=== PATIENT | male | born 1945 | race Caucasian/White ===

== ENCOUNTER 2018-07-20 06:10 | Inpatient (IN) | payer OTHER ==
[2018-07-19 13:35] VITALS: BMI 29.9
[~2018-07-20 06:10] MED LIST: HEPARIN NA (PORCINE) 5,000 UNITS/ML 1ML VIAL SQ ONE
[2018-07-20] MEDS ORDERED: BUPIVACAINE HCL/PF 0.5% (5MG/ML) 10 ML VIAL ONE (07:26)
[2018-07-20] MEDS ORDERED: MIDAZOLAM HCL 2 MG/2 ML SINGLE DOSE VIAL ONE (07:57)
[2018-07-20] MEDS ORDERED: PROPOFOL 20 ML ONE (07:57)
[2018-07-20] MEDS ORDERED: fentaNYL CITRATE 250 MCG/5 ML VIAL ONE (07:58)
--- NOTE | 2018-07-20 08:11 | HP ---
History & Physical Update - History History: No Change - Physical Physical: No Change - Assessment Assessment: No Change - Plan Plan: No Change (Used the lead pl sql developer phone service #[phone])
[2018-07-20] MEDS ORDERED: ROCURONIUM BROMIDE 50 MG/5 ML VIAL ONE ×4 (08:15→11:37)
[2018-07-20] MEDS ORDERED: ceFAZolin SODIUM 1 GM VIAL IVPB ONE (08:20)
[2018-07-20] MEDS ORDERED: BUPIVACAINE HCL/PF 0.5% (5MG/ML) 10 ML VIAL NR ONE ×2 (08:50→12:28)
[2018-07-20] MEDS ORDERED: ePHEDrine SULFATE 50 MG/1 ML AMPULE ONE (08:52)
[2018-07-20] MEDS ORDERED: NEOSTIGMINE METHYLSULFATE 0.5 MG/ML - 10 ML MDV ONE (12:17)
[2018-07-20] MEDS ORDERED: GLYCOPYRROLATE 0.2 MG/1 ML VIAL ONE (12:18)
[2018-07-20] MEDS ORDERED: ceFAZolin SODIUM 1 GM VIAL ONE (12:19)
[2018-07-20] MEDS ORDERED: DEXAMETHASONE SOD PHOSPHATE 4 MG/1 ML VIAL ONE (12:19)
[2018-07-20] MEDS ORDERED: LIDOCAINE HCL/PF 2% SDV 5ML VIAL ONE (12:19)
[2018-07-20] MEDS ORDERED: ACETAMINOPHEN INJECTION 100 ML IVPB ONE (12:59)
[2018-07-20] MEDS ORDERED: ONDANSETRON 4 MG/2 ML VIAL IVPB PRN (13:04)
[2018-07-20] MEDS ORDERED: diphenhydrAMINE HCL 50 MG CAPSULE PO PRN (13:04)
[2018-07-20] MEDS ORDERED: HEPARIN NA (PORCINE) 5,000 UNITS/ML 1ML VIAL SQ ONE (13:04)
[2018-07-20] MEDS ORDERED: OXYBUTYNIN CHLORIDE 5 MG TABLET PO PRN (13:04)
[2018-07-20] MEDS ORDERED: ACETAMINOPHEN 1000 MG/100 ML VIAL (NON FORMULARY) IVPB ONE (13:05)
--- NOTE | 2018-07-20 13:09 | OP ---
Operative Note - Note: Operative Date: 07/20/18 Pre-Operative Diagnosis: prostate cancer Operation: robotic assisted radical prostatectomy and bilateral pelvic lymph node dissection Post-Operative Diagnosis: Same as Pre-op Surgeon: Winnie Clayton Interpretative Dancer: Jazmine Mercado Anesthesiologist/MEDICAL RECORDS CUSTODIAN: Beckie Bonilla MD Anesthesia: General Estimated Blood Loss (mls): 100 Operative Report Dictated: Yes
--- NOTE | 2018-07-20 13:10 | SURG ---
Surgery Gum Mixer Note Gum Mixer: Jazmine Mercado PA-C Date of Service: 07/20/18 Diagnosis: Prostate cancer Procedure: Robotic assisted radical prostatectomy and bilateral pelvic lymph node dissection I was present for the entirety of the operative procedure. For further detail, please refer to operative report. Visit type - Case Type Case Type: Scheduled - Emergency Emergency Visit: No - New patient This patient is new to me today: Yes Date on this admission: 07/20/18 - Critical Care Critical Care patient: No
[2018-07-20] MEDS ORDERED: oxyCODONE HCL 5 MG TABLET PO PRN (13:12)
[2018-07-20] MEDS: SODIUM CHLORIDE 1,000 ML IV SCH ×2 (13:15→22:21)
[2018-07-20] MEDS ORDERED: LACTATED RINGERS SOLUTION 1,000 ML IV SCH (13:15)
[2018-07-20] MEDS ORDERED: BRIMONIDINE TARTRATE 0.2% OPHTHALMIC 5 ML BOTTLE OU SCH (14:00)
--- NOTE | 2018-07-20 14:19 | PN ---
Progress Note (short form) - Note Progress Note: Used the guinean intreperter phone #[phone] to confirm eye drop medications. He has no complaints of blurry vision at this time. His eye drops are to resume as scheduled.
[2018-07-20] MEDS ORDERED: KETOROLAC TROMETHAMINE 30 MG/1 ML VIAL ONE (14:39)
[2018-07-20] MEDS ORDERED: KETOROLAC TROMETHAMINE 15 MG/ML VIAL IVPB ONE (15:00)
[2018-07-20] MEDS ORDERED: CEFAZOLIN 1 GM/D5W 1 GM/50 ML BAG IVPB SCH (16:00)
[2018-07-20] MEDS: INSULIN SLIDING SCALE (NOVOLOG) 1 VIAL SQ SCH ×2 (17:17→21:13)
[2018-07-20] MEDS: ACETAMINOPHEN 500 MG TABLET (FP) PO SCH (19:21)
[2018-07-20] MEDS ORDERED: PT OWN MED DRAWER 7, Y5N ONE (20:53)
[2018-07-20] MEDS: DOCUSATE SODIUM 100 MG CAPSULE (FP) PO SCH (21:09)
[2018-07-20] MEDS: KETOROLAC TROMETHAMINE 10 MG TABLET PO SCH (21:10)
[2018-07-20] MEDS: DORZOLAMIDE 2% HCL OPHTHALMIC SOLUTION 10 ML BOTTLE OU SCH (21:55)
[2018-07-20] MEDS: TIMOLOL 0.5% OPHTHALMIC SOL 5 ML BOTTLE OU SCH (21:55)
[2018-07-20] MEDS ORDERED: ATORVASTATIN CA 10 MG TABLET (FP) PO SCH (22:00)
[2018-07-20] MEDS ORDERED: LATANOPROST 0.005% OPHTH SOLN 2.5ML BOTTLE OU SCH (22:00)
[2018-07-20] MEDS ORDERED: PATIENT'S OWN MEDICATION (NON-FORMULARY) (Dorzolamide/Timolol/Pf [Timolol 0.5%-Dorzolamide OU SCH ×2 (22:00)
[2018-07-21] MEDS ORDERED: CEFAZOLIN 1 GM/D5W 1 GM/50 ML BAG IVPB SCH
[2018-07-21] MEDS: KETOROLAC TROMETHAMINE 10 MG TABLET PO SCH ×3 (00:30→12:16)
[2018-07-21] MEDS ORDERED: CEFAZOLIN 1 GM in DEXTROSE 5%-WATER - 50 ML IVPB ONE (00:30)
[2018-07-21] MEDS: ACETAMINOPHEN 500 MG TABLET (FP) PO SCH ×3 (01:02→12:15)
[2018-07-21] MEDS ORDERED: HEPARIN NA (PORCINE) 5,000 UNITS/ML 1ML VIAL SQ ONE (06:00)
[2018-07-21] MEDS: INSULIN SLIDING SCALE (NOVOLOG) 1 VIAL SQ SCH ×2 (06:38→10:56)
[2018-07-21 06:47] LABS: HEMATOCRIT 41.1 % (35.4-49); HEMOGLOBIN 13.8 GM/dL (11.7-16.9); MCH 29.7 pg (25.7-33.7); MCHC 33.5 g/dl (32.0-35.9); MEAN CELL VOLUME 88.7 fl (80-96); MEAN PLT VOLUME 9.7 fl (7.5-11.1); PLATELET COUNT 169 K/MM3 (134-434); RBC 4.63 M/mm3 (4.00-5.60); RDW 14.5 % (11.9-15.9); WHITE BLOOD COUNT 11.6 K/mm3 (4.0-10.0)
[2018-07-21] MEDS ORDERED: metFORMIN HCL 500 MG TABLET (FP) PO SCH (07:00)
[2018-07-21 07:13] LABS: CALCIUM 8.4 mg/dL (8.5-10.1); CREATININE 1.1 mg/dL (0.55-1.3); POTASSIUM 3.5 mmol/L (3.5-5.1)
--- NOTE | 2018-07-21 08:36 | DS ---
Physical Exam: SUBJECTIVE: Patient seen and examined this am. No complaints of CP/SOB. Minimal abd pain complaints. No nausea or emesis with clears, passed a small amount of flatus. OBJECTIVE: Vital Signs Period Temp Pulse Resp BP Sys/Sanon Pulse Ox Last 24 Hr 98 F-99.2 F 68-86 15-20 122-151/66-92 96-100 JP_ 35 ml blood tinged Duran 2500 blood tinged/light pink to clear no clots. PHYSICAL EXAM GENERAL: The patient is awake, alert, and fully oriented, in no acute distress. LUNGS: Breath sounds equal, clear to auscultation bilaterally. HEART: Regular rate and rhythm. ABDOMEN: Soft, incisional tenderness, nondistended. Incision c/d/i. YOAN removed without difficulty/tip intact. EXTREMITIES: no edema, no calf tenderness b/l. LABS Laboratory Results - last 24 hr 07/20/07/20/07/20/18 07:37 17:02 20:49 WBC RBC Hgb Hct MCV MCH MCHC RDW Plt Count MPV Sodium Potassium Chloride Carbon Dioxide Anion Gap BUN Creatinine Est GFR (CKD-EPI)AfAm Est GFR (CKD-EPI)NonAf POC Glucometer 151 145 Random Glucose Calcium Blood Type O POSITIVE 07/21/18 07/21/18 05:00 05:00 WBC 11.6 H RBC 4.63 Hgb 13.8 Hct 41.1 MCV 88.7 MCH 29.7 MCHC 33.5 RDW 14.5 Plt Count 169 MPV 9.7 Sodium 143 Potassium 3.5 Chloride 109 H Carbon Dioxide 27 Anion Gap 7 L BUN 11 Creatinine 1.1 Est GFR (CKD-EPI)AfAm 78.41 Est GFR (CKD-EPI)NonAf 67.66 POC Glucometer Random Glucose 101 Calcium 8.4 L Blood Type HOSPITAL COURSE: The patient was admitted to the Med-Surg Unit after an elective repair of their prostate cancer. Now, s/p robotic assisted prostatectomy with bilateral pelvic lymph node dissection. Non-narcotic pain management control was achieved with an oral and IV approach. POD #1, the surgical drain was removed fully intact and without incident. Monika-operative IV ABX were administered. DVT prophylaxis was achieved with SCDs, early ambulation and heparin SQ pre/post op. His duran catheter was draining light pink urine without clots. He tolerated clears liquids and was passing flatus upon discharge. The discharge instructions and an oral pain management plan were reviewed with the patient. Above plan discussed with Dr. Clayton. Date of Admission:07/20/18 Date of Discharge: 07/21/18 Minutes to complete discharge: 20 Discharge Summary Reason For Visit: MALIGNANT NEOPLASM OF PROSTATE Condition: Good - Instructions Diet, Activity, Other Instructions: Prostatectomy Post Operative Instructions Physical activity Resume your normal everyday activity as tolerated no heavy lifting (do not lift greater than 10 pounds) for six weeks. You may walk unlimited amounts and climb stairs. Wound care You may shower 48 hours after surgery. No baths or submerging your incision in water. Diet Continue a clear liquid diet until you are passing flatus, then advance your diet to a regular diet. You were prescribed stool softeners, please take them. This medication will help to avoid straining with bowel movements. Pain management You may take Tylenol (acetaminophen) and or Toradol (ketorolac tromethamine) for pain. Follow-up * Call Dr. Anderson for any of the following: * Severe pain not relieved by medication * Fever of 101 or higher * Excessive bleeding or drainage on dressing * Duran not draining urine for more than 1 hour or it the urine becomes bloody * Call the office at to confirm your follow-up appointment date and time Disposition: HOME - Home Medications Comprehensive Discharge Medication List: Ambulatory Orders Enalapril Maleate 5 mg PO DAILY 07/19/18 Acetaminophen [Tylenol -] 1,000 mg PO Q8H PRN #30 tablet 07/20/18 Aspirin [ASA -] 81 mg PO DAILY 07/20/18 Brimonidine Tartrate [Alphagan 0.2% -] 1 drop OU TID 07/20/18 Calcium Carbonate/Vitamin D3 [Calcium 500 + Vit D Caplet] 1 each PO DAILY Docusate Sodium [Colace -] 100 mg PO BID #60 capsule 07/20/18 Dorzolamide/Timolol/Pf [Timolol 0.5%-Dorzolamide 2%] 1 ml OU BID 07/20/18 Ergocalciferol [Vitamin D2] 50,000 unit PO Q7D@1000 07/20/18 Ketorolac Tromethamine [Toradol] 10 mg PO Q6H PRN #20 tablet 07/20/18 Latanoprost/Pf [Latanoprost 0.005% Eye Drop] 1 drop OU HS 07/20/18 Multivitamin [Multiple Vitamins] 1 each PO DAILY 07/20/18 Oxybutynin Chloride [Ditropan -] 5 mg PO Q8H PRN #10 tablet 07/20/18 Simvastatin 20 mg PO DAILY 07/20/18 metFORMIN HCL [Metformin HCl] 750 mg PO DAILY 07/20/18 This patient is new to me today: No Emergency Visit: No Critical Care patient: No - Discharge Referral Referred to [facility] No
[2018-07-21] MEDS ORDERED: PT OWN MED DRAWER 7, Y5N ONE (09:31)
[2018-07-21] MEDS: DOCUSATE SODIUM 100 MG CAPSULE (FP) PO SCH (09:36)
[2018-07-21] MEDS ORDERED: ENALAPRIL MALEATE 5 MG TABLET (FP) PO SCH (10:00)
[2018-07-21] MEDS: DORZOLAMIDE 2% HCL OPHTHALMIC SOLUTION 10 ML BOTTLE OU SCH (10:47)
[2018-07-21] MEDS: TIMOLOL 0.5% OPHTHALMIC SOL 5 ML BOTTLE OU SCH (10:47)
[2018-07-21 12:10] VITALS: BP 147/88; PULSE 81; TEMP 98.5
--- NOTE | 2018-07-23 06:57 | OP ---
DATE OF OPERATION: DATE OF DICTATION: 07/23/2018 PREOPERATIVE DIAGNOSIS: Prostate cancer. PROCEDURE PERFORMED: Robotic-assisted radical prostatectomy, bilateral pelvic lymph node dissection. SURGEON: Winnie Clayton MD PRIMARY BESSEMER REGULATOR: KEITH Espino INDICATIONS: This is a 72-year-old male patient who presents for robotic radical prostatectomy for prostate cancer. FINDINGS: Left neurovascular bundle spared, right sacrificed. Anastomosis done with 3-0 V-Loc in a running fashion. PROCEDURE DETAILS: The patient was prepped and draped in the usual fashion and placed in modified lithotomy position. All pressure points were padded, and the patient was secured to the table. A 16-Kazakh Van catheter was inserted. A supraumbilical incision was made. Veress needle was introduced, and the abdomen was insufflated to 15 mmHg. At 12-mm, a non-bladed trocar was introduced. The abdomen was inspected, and there was no evidence of injury on entry. Two robotic trocars were placed in the right lower quadrant, one in the left lower quadrant, and an retail loan originator assistant 12-mm AirSeal was introduced 2 fingerbreadths above the left anterior-superior iliac spine. Here, the patient was placed in non-steep Trendelenburg position. The AirSeal was initiated and maintained at 11 mmHg, and the robot was brought and docked into place. The median umbilical and the median umbilical ligaments were divided, and the space of Retzius was developed. Superficial dorsal vein was divided with electrocautery, and the prostate was defatted, and the pre-prostatic fat sent for pathologic analysis. Puboprostatic ligaments were divided. Endopelvic fascia was incised. Dorsal venous complex was controlled using 0 Vicryl figure-of-8 suture. The prostatovesical junction was divided using electrocautery. The vas deferens was identified, fulgurated, and divided. Seminal vesicles were dissected free of attachments. The posterior Denonvilliers fascia was divided. The rectum was peeled off the posterior aspect of the prostate as far down as possible. Bilateral prostatic pedicles were taken down using Hem-o-Karin clips and divided. Neurovascular bundle on the right was sacrificed due to more tumor extension on the right. Left bundle was spared. The apex was dissected under vision. Anterior and posterior urethra were then divided with cold scissors. Finally, fibers of posterior fibrous raphe were divided, and the prostate was detached. A small amount of anterior urethral tissue was sent from the right side for frozen and was reported as negative for cancer. Bilateral pelvic lymph node dissection was carried out removing obturator and external iliac lymph node packets. At the end of dissection, external iliac vessels and obturator nodes were intact with no evidence of injury. Left side was sent separately in an EndoCatch bag. A 3-hole V-Loc suture was used in the vesicourethral anastomosis started from 6 o'clock to 12 o'clock clockwise and counterclockwise, and tied in the middle. Irrigation with a new 16-Kazakh Van did not reveal any leak. The balloon was inflated to 10 mL. A 10-Kazakh YOAN drain was brought through the most right lateral trocar incision and tied to skin with 3-0 nylon suture. The right pelvic lymph node and the prostate were placed in the EndoCatch bag. The robot was undocked and removed. The patient was taken out of Trendelenburg. The prostate was then removed by extending the umbilical trocar incision. Fascia was closed using figure-of-8 Vicryl suture. The skin was closed using 4-0 Monocryl and Dermabond. ESTIMATED BLOOD LOSS: 100 mL. MD SHEEBA SAUNDERS/[id number]
== END 2018-07-21 12:31 | disposition home or self-care (01) | DRG 708 ==
LOC: JSAMEDAYSX 06:10 → J6S 15:10
PROVIDERS: ADMIT Student in an Organized Health Care Education/Training Program; ATTEND Student in an Organized Health Care Education/Training Program
PROC: 0VT34ZZ Resection of Bilateral Seminal Vesicles, Percutaneous Endoscopic Approach (ICD-10-PCS; 2018-07-20)
PROC: 07BC4ZX Excision of Pelvis Lymphatic, Percutaneous Endoscopic Approach, Diagnostic (ICD-10-PCS; 2018-07-20)
PROC: 8E0W4CZ Robotic Assisted Procedure of Trunk Region, Percutaneous Endoscopic Approach (ICD-10-PCS; 2018-07-20)
PROC: 0VT04ZZ Resection of Prostate, Percutaneous Endoscopic Approach (ICD-10-PCS; principal; 2018-07-20 08:00)
DX: C61 Malignant neoplasm of prostate (principal)
CPT/HCPCS: 36415; 80048; 82962; 85027; 86850; 86900; 86901; 94760; J0131; J1644; J7030